=== PATIENT | male | born 1960 | race Caucasian/White ===

== ENCOUNTER 2021-11-14 14:05 | Outpatient (RCR) | payer BC ==
[~2021-11-14 14:05] MED LIST: AMBIEN 5MG TABLE5 MG PO; AMBIEN CR12.5 MG PO; ANDROGEL; DIOVAN 160MG160 MG PO; IBUPROFEN 200200 MG PO; LIPITOR20 MG PO; OXYCODONE HCL5 MG PO; POLYMYXIN B/TRIMETH OD; PRAVACHOL10 MG PO; VICODIN PO; androgel
== END 2021-11-17 | disposition home or self-care (01) ==
LOC: COL.CR
DX: Z48.812 Encounter for surgical aftercare following surgery on the circulatory system (principal); Z98.61 Coronary angioplasty status; I25.2 Old myocardial infarction

== ENCOUNTER 2021-12-14 14:21 | Outpatient (RCR) | payer BC | END 2021-12-18 | disposition home or self-care (01) | LOC: COL.CR | DX: Z48.812 Encounter for surgical aftercare following surgery on the circulatory system (principal); Z98.61 Coronary angioplasty status; I25.2 Old myocardial infarction ==

== ENCOUNTER 2021-12-26 12:05 | Outpatient (RCR) | payer BC | END 2022-01-17 | disposition home or self-care (01) | LOC: COL.CR | DX: Z48.812 Encounter for surgical aftercare following surgery on the circulatory system (principal); Z95.5 Presence of coronary angioplasty implant and graft; I25.2 Old myocardial infarction ==

== ENCOUNTER 2022-02-21 07:30 | Inpatient (IN) | payer BC ==
[~2022-02-21] VITALS: Ht 190.5 cm; Wt 91.6 kg
[2022-02-21] VITALS (14 sets, daily range): BP systolic 73–123; BP diastolic 35–80; PULSE 42–60
[~2022-02-21 07:30] MED LIST changes: +LIPITOR 80MG80 MG PO; -LIPITOR20 MG PO
[2022-02-21 08:05] LABS: BASO # 0.1 K/mm3 (0.0-0.2); BASO % 1.1 % (0.0-2.0); EOS # 0.5 K/mm3 (0.0-0.7); EOS % 6.3 % (0.0-4.0); GRAN % 53.5 % (42.2-75.2); HEMOGLOBIN 15.7 g/dl (13.5-18.0); LYMPH # 1.9 K/mm3 (1.2-3.4); LYMPH % 25.9 % (20.0-51.0); MEAN CELL VOLUME 89 fl (80.0-100.0); MEAN CORPUSCULAR HEMOGLOBIN 30 pg (27-31); MEAN CORPUSCULAR HGB CONC 33 g/dl (33.0-37.0); MONO % 12.9 % (1.7-9.3); PLATELET COUNT 214 K/mm3 (130-400); REDCELL DISTRIBUTION WIDTH-CV 13.3 % (11.5-14.5)
[2022-02-21 08:12] LABS: INR 1.2 (0.8-3.0); PROTHROMBIN TIME 13.7 SECONDS (9.7-12.8)
[2022-02-21 08:14] LABS: PARTIAL THROMBOPLASTIN TIME 33.1 SECONDS (26.0-37.0)
[2022-02-21 08:20] LABS: ALANINE AMINOTRANSFERASE 31 U/L (0-55); ALBUMIN 3.9 gm/dL (3.4-4.8); ALKALINE PHOSPHATASE 86 U/L (40-150); ANION GAP 9 mmol/L (7-16); AST,SGOT 18 U/L (5-34); BILIRUBIN,TOTAL 0.5 mg/dL (0.2-1.2); BLOOD UREA NITROGEN 14 mg/dL (8-26); CALCIUM 9.3 mg/dL (8.4-10.2); CARBON DIOXIDE 23 mmol/L (23-31); CHLORIDE 105 mmol/L (98-107); CREATININE, serum 0.87 mg/dL (0.72-1.25); GLUCOSE 101 mg/dL (70-99); LIPASE 70 U/L (8-78); POTASSIUM 4.3 mmol/L (3.5-4.5); SODIUM 137 mmol/L (136-145); TOTAL PROTEIN 6.7 gm/dL (6.2-8.1)
[2022-02-21 08:28] LABS: TROPONIN-I < 0.010 ng/mL (0.00-0.033)
--- NOTE | 2022-02-21 13:14 | NUR ---
See merge for all medication, assessment, intervention, and vital sign times.
[2022-02-21] MEDS ORDERED: ASPIRIN E.C. 8181 MG PO (15:29)
[2022-02-21] MEDS ORDERED: ZETIA 10MG TAB10 MG PO (16:06)
[2022-02-21] MEDS ORDERED: PLAVIX 75MG TAB75 MG PO (16:06)
[2022-02-21] MEDS ORDERED: NITROSTAT0.4 MG/TAB SL (16:07)
--- NOTE | 2022-02-21 19:00 | NUR ---
REPORT RCVD FROM SYLWIA BETHEA AND REE GRAY. THE PATIENT HAS BEEN BACK FROM HEART CATH SINCE 1600 PER REPORT. 3CC OF 13CC OF AIR HAS BEEN REMOVED. DURING ROUNDING, 3CC REMOVED,SOME LEAKAGE, PLACED 1CC BACK, LEAKING STOPPED. WILL RETURN TO ENSURE NO FURTHER LEAKAGE. THE PATIENT WRIST IS SOFT WITH SOME BRUISING, NO HEMATOMA NOTED. CURRENT VSS, BP IS SOFT IN THE LOW 90'S OVER 60'S. NO OTHER CONCERNS AT THIS TIME. WILL CONTINUE TO MONITOR.
--- NOTE | 2022-02-21 22:22 | NUR ---
THE PATIENT HAS HAD SOME LOW BLOOD PRESSURES THROUGH THE EVENING. BEEN IN DISCUSSION WITH RICKI MORE WHO HAD ORDERD A 500ML BOLUS TO CONTINUE FROM THE 0.45% NS THAT WAS RUNNING POSTOPERATIVELY. BOLUS WAS GIVEN, AND BLOOD PRESSURE DURING BOLUS WAS 91/53, IMMEDIATELY AFTER BOLUS WAS COMPLETED, BP WAS 88/43. THE PATIENT REMAINS ASYMPTOMATIC ASIDE FROM BEING VERY TIRED. RICKI MORE ORDERED LABS, EKG AND NS@100. WILL CONTINUE TO MONITOR THROUGH THE NIGHT.
[2022-02-21 23:04] LABS: BASO # 0.1 K/mm3 (0.0-0.2); EOS # 0.5 K/mm3 (0.0-0.7); EOS % 5.9 % (0.0-4.0); GRAN # 4.7 K/mm3 (1.4-6.5); GRAN % 56.7 % (42.2-75.2); HEMATOCRIT 40.1 % (42.0-52.0); LYMPH # 1.9 K/mm3 (1.2-3.4); LYMPH % 22.9 % (20.0-51.0); MEAN CELL VOLUME 88 fl (80.0-100.0); MEAN CORPUSCULAR HEMOGLOBIN 30 pg (27-31); MEAN CORPUSCULAR HGB CONC 34 g/dl (33.0-37.0); MEAN PLATELET VOLUME 9.3 fl (7.4-10.4); MONO # 1.1 K/mm3 (0.1-0.6); MONO % 13.1 % (1.7-9.3); PLATELET COUNT 167 K/mm3 (130-400); RED BLOOD COUNT 4.56 M/mm3 (4.20-5.60); REDCELL DISTRIBUTION WIDTH-CV 13.3 % (11.5-14.5)
[2022-02-21 23:07] LABS: HEMOGLOBIN 13.5 g/dl (13.5-18.0)
[2022-02-21 23:21] LABS: CALCIUM 8.6 mg/dL (8.4-10.2); CREATININE, serum 0.82 mg/dL (0.72-1.25); POTASSIUM 3.8 mmol/L (3.5-4.5)
[2022-02-22] VITALS (1080 sets, daily range): BP systolic 65–103; BP diastolic 34–62; PULSE 42–59; TEMP 98; O2SAT 59–100
--- NOTE | 2022-02-22 01:00 | NUR ---
While checking the patient's post op vitals, the machine had been set for more often than the post op vitals monitor. This patient continues to be hypotensive. Several pressures measure in the 60's over 30's. This RN reassessed the patient's symptoms, continues to state he is not having any chest pain, sob, dizziness, or lightheadedness. RICKI Munoz at bedside after the patient had a manual pressure of 72/46. The patient has been bolused 2.5L at this time. RICKI Munoz states she is consulting Cardiology to decide what to do for him.
--- NOTE | 2022-02-22 01:09 | NUR ---
DURING NIGHT PATIENT HAS REMAINED HYPOTENSIVE. HE STATES HE IS ASYMPTOMATIC, DENIES CHEST PAIN, DIZZINESS, SOB, LIGHTHEADEDNESS. DURING ORTHOSTATIC BP CHECK, SUPINE: BP 87/42, HR 52 SIT: BP 81/42 HR 55 STANDING: BP 78/47 HR 59. IMMEDIATELY AFTER SITTING BACK DOWN THE MACHINE ACTIVATED FOR BP AGAIN DUE TO TIMING FOR POST OPS; BP WAS THEN 77/41 WITH HR OF 48. THE PATIENT IS CURRENTLY GETTING A BOLUS OF 500ML NS. RICKI MORE AWARE AND DISCUSSING WITH CARDIOLOGY.
--- NOTE | 2022-02-22 02:15 | NUR ---
This patient has been transferred to ICU for a dopamine gttp. This RN gave report to SYLWIA Bradford. Upon arrival, patient was able to transfer from bed to bed without issue. Continues to state he is asymptomatic. Transfer of care completed.
--- NOTE | 2022-02-22 02:56 | NUR ---
PATIENT ADMITED TO ICU BED 6 FROM MEDICAL FLOOR. STARTED ON DOPAMINE DRIP PER MD ORDERS. PATIENT ALERT AND ORIENTED. ASYMPOTOMATIC WITH HYPOTENSION. NO ACUTE DISTRESS. ALL SAFETY MEASURES MAINTAINED. WILL CONTINUE TO MONITOR.
[2022-02-22 06:56] LABS: BASO # 0.1 K/mm3 (0.0-0.2); BASO % 0.5 % (0.0-2.0); EOS # 0.3 K/mm3 (0.0-0.7); EOS % 2.4 % (0.0-4.0); GRAN # 8.3 K/mm3 (1.4-6.5); GRAN % 77.2 % (42.2-75.2); HEMATOCRIT 40.5 % (42.0-52.0); HEMOGLOBIN 13.6 g/dl (13.5-18.0); LYMPH # 1.2 K/mm3 (1.2-3.4); LYMPH % 11.3 % (20.0-51.0); MEAN CELL VOLUME 87 fl (80.0-100.0); MEAN CORPUSCULAR HEMOGLOBIN 29 pg (27-31); MEAN CORPUSCULAR HGB CONC 34 g/dl (33.0-37.0); MEAN PLATELET VOLUME 9.2 fl (7.4-10.4); MONO # 0.9 K/mm3 (0.1-0.6); MONO % 8.3 % (1.7-9.3); PLATELET COUNT 174 K/mm3 (130-400); RED BLOOD COUNT 4.64 M/mm3 (4.20-5.60); REDCELL DISTRIBUTION WIDTH-CV 13.3 % (11.5-14.5)
--- NOTE | 2022-02-22 07:00 | NUR ---
PT RESTING IN BED. DOPAMINE RUNNING. PTS BP 70'S-90'S. PT ASYMPTAMTIC. PT DENIES NEEDS. CALL LIGHT WITHIN REACH, AND INSTRUCTED TO CALL WITH ALL NEEDS.
[2022-02-22 07:16] LABS: CALCIUM 8.3 mg/dL (8.4-10.2); CREATININE, serum 0.76 mg/dL (0.72-1.25); POTASSIUM 4.2 mmol/L (3.5-4.5)
--- NOTE | 2022-02-22 15:00 | NUR ---
RE:MEDICAL MANAGEMENT OF CAD. Staff spoke to about risk factor reduction and exercise since time in cardiac rehab - approx 2 months ago. Pt unsure of medical plan - Staff discussed that cardiology could send referral if appropriate for stable angina or if pt just had questions about continuing exercise he can contact staff - dept. card given to patient's . approx 8 minutes spent consulting patient /documentaion.
--- NOTE | 2022-02-22 15:50 | NUR ---
TP'S BP IN THE 100'S AFTER 1L BOLUS. ORDER TO STOP DOPAMINE AND MONTIOR PT. PT AND FAMILY UPDATED.
--- NOTE | 2022-02-22 17:33 | NUR ---
SPOKE WITH AND . PT HAS BEEN OFF DOPAMINE FOR AN HR AND HALF. BP IN THE 90-100'S. HR 50-60'S. STATES OK TO KEEP OFF DOPAMINE. STATES CONTINUE FLUIDS AND MONTIOR.
[2022-02-23] VITALS (539 sets, daily range): BP systolic 93–124; BP diastolic 62–84; PULSE 48–55; TEMP 98–98.1; O2SAT 85–100
[2022-02-23 06:18] LABS: BASO % 0.5 % (0.0-2.0); EOS # 0.4 K/mm3 (0.0-0.7); EOS % 4.8 % (0.0-4.0); GRAN # 4.7 K/mm3 (1.4-6.5); GRAN % 61.1 % (42.2-75.2); HEMOGLOBIN 13.4 g/dl (13.5-18.0); LYMPH # 1.6 K/mm3 (1.2-3.4); LYMPH % 21.2 % (20.0-51.0); MEAN CELL VOLUME 90 fl (80.0-100.0); MEAN CORPUSCULAR HEMOGLOBIN 30 pg (27-31); MEAN CORPUSCULAR HGB CONC 34 g/dl (33.0-37.0); MEAN PLATELET VOLUME 9.5 fl (7.4-10.4); MONO # 0.9 K/mm3 (0.1-0.6); MONO % 12.1 % (1.7-9.3); PLATELET COUNT 154 K/mm3 (130-400); RED BLOOD COUNT 4.47 M/mm3 (4.20-5.60); REDCELL DISTRIBUTION WIDTH-CV 13.3 % (11.5-14.5)
[2022-02-23 06:41] LABS: CALCIUM 8.3 mg/dL (8.4-10.2); CHOLESTEROL RISK RATIO 3.7; CREATININE, serum 0.8 mg/dL (0.72-1.25); POTASSIUM 4.1 mmol/L (3.5-4.5)
[2022-02-23] MEDS ORDERED: DIOVAN 80MG80 MG PO (11:21)
[2022-02-23] MEDS ORDERED: IMDUR 30MG30 MG/TAB PO (11:22)
--- NOTE | 2022-02-23 11:47 | NUR ---
REPORT RECEIVED FROM SYLWIA PAYNE; PATIENT IS CURRENTLY RESTING IN BED WITH IV FLUIDS RUNNING INTO HIS PERIPHERAL IV. VITAL SIGNS ARE ALL WITHIN NORMAL LIMITS AND PATIENT HAS NO COMPLAINTS OF PAIN AT THIS TIME.
--- NOTE | 2022-02-23 15:24 | NUR ---
PT DISCHARGED AT 1300 WITH SON. VERBALIZES EDUCATION AND DISCHARGE INSTRUCTIONS.
== END 2022-02-23 13:05 | disposition home or self-care (01) | DRG 287 ==
LOC: COL.ER 07:30 → MEDICAL 09:33 → ICU 02-22 02:16
PROVIDERS: Emergency Medicine; Physician Assistant; ADMIT Internal Medicine
PROC: 4A023N7 Measurement of Cardiac Sampling and Pressure, Left Heart, Percutaneous Approach (ICD-10-PCS; principal; 2022-02-21)
PROC: B2111ZZ Fluoroscopy of Multiple Coronary Arteries using Low Osmolar Contrast (ICD-10-PCS; 2022-02-21)
DX: I25.110 Atherosclerotic heart disease of native coronary artery with unstable angina pectoris (principal); E78.5 Hyperlipidemia, unspecified; I95.9 Hypotension, unspecified; Z53.8 Procedure and treatment not carried out for other reasons; I10 Essential (primary) hypertension; N52.9 Male erectile dysfunction, unspecified; I25.2 Old myocardial infarction; Z95.5 Presence of coronary angioplasty implant and graft; Z90.89 Acquired absence of other organs; Z72.89 Other problems related to lifestyle; Z79.01 Long term (current) use of anticoagulants; Z23 Encounter for immunization
CPT/HCPCS: C1725; C1769; C1887; J0583; J1265; J1644; J1650; J2250; J2405; J3010; J7030; Q9967

== ENCOUNTER 2022-03-04 19:35 | Emergency (ER) | payer BC ==
[~2022-03-04] VITALS: Ht 188 cm; Wt 88.2 kg
[~2022-03-04 19:35] MED LIST changes: +ASPIRIN E.C. 8181 MG PO; +DIOVAN 80MG80 MG PO; +IMDUR 30MG30 MG/TAB PO; +NITROSTAT0.4 MG/TAB SL; +PLAVIX 75MG TAB75 MG PO; +ZETIA 10MG TAB10 MG PO
[2022-03-04] MEDS ORDERED: CRUTCHES MC (21:48)
[2022-03-04 21:52] VITALS: BP 147/82; PULSE 51; TEMP 98.6
== END 2022-03-04 21:52 | disposition home or self-care (01) ==
LOC: COL.ER 19:35
DX: S90.32XA Contusion of left foot, initial encounter (principal); Z23 Encounter for immunization; W20.8XXA Other cause of strike by thrown, projected or falling object, initial encounter

== ENCOUNTER 2024-02-13 21:47 | Emergency (ER) | payer BC ==
[~2024-02-13] VITALS: Ht 190.5 cm; Wt 93.2 kg
[~2024-02-13 21:47] MED LIST changes: +CRUTCHES MC
[2024-02-13 21:49] VITALS: TEMP 98.2
[2024-02-13] MEDS ORDERED: oxyCODONE/Acetaminophen 5-325 MG TAB PO ONE (22:45)
[2024-02-13] MEDS ORDERED: Home oxyCODONE/Acetaminophen 5/325 MG #4 TAB/PACK PO ONE (23:45)
[2024-02-13] MEDS ORDERED: PERCOCET 325 MG1 TA2 PO (23:50)
[2024-02-14 00:14] VITALS: BP 155/89; PULSE 64
== END 2024-02-14 00:14 | disposition home or self-care (01) ==
LOC: COL.ER 21:47
DX: S82.842A Displaced bimalleolar fracture of left lower leg, initial encounter for closed fracture (principal); W22.8XXA Striking against or struck by other objects, initial encounter; X50.1XXA Overexertion from prolonged static or awkward postures, initial encounter; Y93.01 Activity, walking, marching and hiking